=== PATIENT | male | born 1930 | race Caucasian/White ===

== ENCOUNTER 2018-07-20 08:13 | Day surgery (SDC) | payer MEDICARE, OTHER ==
[~2018-07-20 08:13] MED LIST: Lidocaine 1% with EPINEPHrine 1:100,000 50 ML MDV ONE; Sodium Chloride 0.9% 10 ML ONE; Sodium Tetradecyl Sulfate 1% 20 MG/2 ML SDV ONE
[2018-07-20] MEDS ORDERED: fentaNYL 100 MCG/2 ML SDV ONE (08:28)
[2018-07-20] MEDS ORDERED: Midazolam 1 MG/ML 2 ML SDV ONE (08:28)
[2018-07-20] MEDS ORDERED: Propofol 200 MG/20 ML SDV ONE (08:28)
[2018-07-20] MEDS ORDERED: Sodium Chloride 0.9% 1,000 ML IV SCH (09:00)
[2018-07-20] MEDS ORDERED: Lidocaine 1% w/EPINEPHrine 50 ML, Sodium Bicarbonate 5 MEQ in Sodium Chloride 0.9% 950 ML INJECT SCH (09:45)
[2018-07-20] MEDS ORDERED: Dexamethasone 4 MG/ML SDV ONE (09:52)
[2018-07-20] MEDS ORDERED: Ketorolac 60 MG/2 ML SDV ONE (09:52)
[2018-07-20] MEDS ORDERED: Ondansetron 4 MG/2 ML SDV ONE (09:52)
--- NOTE | 2018-07-21 08:23 | OR ---
DATE OF PROCEDURE: 07/20/2018 SURGEON: Zak Hobson MD PROCEDURES: 1. Radiofrequency ablation of right greater saphenous vein. 2. Radiofrequency ablation of left greater saphenous vein. 3. Radiofrequency ablation of left leg deep waste/materials exchange specialist. 4. Radiofrequency ablation of right anterior accessory vein. 5. Sclerotherapy of left leg, multiple. 6. Sclerotherapy of right leg, multiple. 7. Compression wrapping, left leg, 20 mmHg pressure, [id number] configuration. 8. Compression wrapping (94190), right leg, 20 mmHg, [id number] confirmation. COMPLICATIONS: None. TRAVEL WRITER: None. PREOPERATIVE DIAGNOSIS: Venous insufficiency with inflammation and pain, and lipodermatosclerosis. POSTOPERATIVE DIAGNOSIS: Venous insufficiency with inflammation and pain, and lipodermatosclerosis. PROCEDURE IN DETAIL: The patient was placed in supine position. Both legs were prepped and draped. The left leg was addressed first. Radiofrequency ablation was used to address the left leg deep waste/materials exchange specialist and left leg greater saphenous vein by using 21-gauge needles and then exchanged for a 35,000th wire and 7-[place] sheath. The probes would be introduced into the aforementioned veins. Tumescent fluid injected in a 1-cm jacket around this, and the probes would be deployed x2 proximally and distally, and x1 in all other segments, except for the waste/materials exchange specialist, which was only a single segment. Direct even pressure was held during deployment. Sheath and device were removed. Direct pressure was held for 10 minutes. Dermabond was applied. The right leg was then addressed in a similar fashion using 21-gauge needles, then 7-[place] sheath through a 35,000th wire. This would also be accessed using two separate wires. Tumescent fluid injected in a 1-cm jacket around this and direct even pressure was held as the probe was deployed x2 proximally and distally, and x1 in all other segments. Once radiofrequency ablation was completed, sclerotherapy was then performed using 0.33% sodium tetradecyl and always drawn back to ensure intravascular injection only, 3 on the right and 3 on the left. No more than 2 mL was injected in one location. [id number], two-layer, two-stage compression wrapping was then performed in distal to proximal gradient. The patient tolerated the procedure well. Zak Hobson MD /[id number]
== END 2018-07-20 12:00 | disposition home or self-care (01) ==
LOC: JP.SDS 08:13
PROVIDERS: ATTEND Surgery
DX: I83.12 Varicose veins of left lower extremity with inflammation (principal); I83.11 Varicose veins of right lower extremity with inflammation; I10 Essential (primary) hypertension; E78.00 Pure hypercholesterolemia, unspecified; R73.03 Prediabetes; Z87.891 Personal history of nicotine dependence; Z79.82 Long term (current) use of aspirin; Z79.899 Other long term (current) drug therapy
CPT/HCPCS: 36471; 36475; 36476; J1100; J1642; J1885; J2250; J2405; J2704; J3010; J7030; J3490

== ENCOUNTER 2021-07-19 09:15 | Emergency (ER) | payer MEDICARE, BC ==
[2021-07-19] MEDS ORDERED: Lidocaine 1% 5 ML VIAL INJECT ONE (09:46)
[2021-07-19] MEDS ORDERED: Bacitracin Oint 1 GM U/D Packet TOP ONE (10:14)
== END 2021-07-19 10:40 | disposition home or self-care (01) ==
LOC: JP.ED 09:15
DX: S01.111A Laceration without foreign body of right eyelid and periocular area, initial encounter (principal); E78.00 Pure hypercholesterolemia, unspecified; I10 Essential (primary) hypertension; Z79.82 Long term (current) use of aspirin; Z79.899 Other long term (current) drug therapy; W18.39XA Other fall on same level, initial encounter
CPT/HCPCS: 12013; 99281; 99283-25

== ENCOUNTER 2021-08-31 07:29 | Emergency (ER) | payer MEDICARE, BC ==
[2021-08-31 08:29] LABS: ESTIMATED GFR 58 mL/min (>60); TROPONIN I HIGH SENSITIVITY 10.6 pg/mL (<=60.3)
[2021-08-31] MEDS ORDERED: Iopamidol 755 Mg/ML 100 ML Bottle IV ONE (10:54)
[2021-08-31] MEDS ORDERED: Sodium Chloride 0.9% 75 ML IV SCH (11:00)
[2021-08-31] MEDS ORDERED: Sodium Chloride 0.9% 1,000 ML IV SCH (11:00)
== END 2021-08-31 13:21 | disposition home or self-care (01) ==
LOC: JP.ED 07:29
DX: J90 Pleural effusion, not elsewhere classified (principal); E78.00 Pure hypercholesterolemia, unspecified; I10 Essential (primary) hypertension; Z79.899 Other long term (current) drug therapy
CPT/HCPCS: 32555; 36415; 36600; 71045; 71045-26; 71046; 71046-26; 71275; 71275-26; 80053; 82150; 82803; 82945; 83615; 83880; 83986; 84157; 84478; 84484; 85025; 85379; 87015; 87070; 87102; 87116; 87205; 87206; 87220; 89050; 99284; 99285-25; J3490; Q9967

== ENCOUNTER 2022-04-02 03:54 | Inpatient (IN) | payer MEDICARE, BC ==
[2022-04-02] MEDS ORDERED: Nitroglycerin/D5W 25 MG/250 ML BOTTLE IV SCH (04:00)
[2022-04-02] MEDS ORDERED: Sodium Chloride 0.9% 10 ML Syringe FLUSH PRN (04:00)
[2022-04-02] MEDS ORDERED: Furosemide 40 MG/4 ML VIAL IVPUSH ONE ×2 (04:30→13:30)
[2022-04-02 04:38] LABS: TROPONIN I HIGH SENSITIVITY 15.4 pg/mL (<=60.3)
[2022-04-02] MEDS ORDERED: Lidocaine 2% Jelly 10 ML Urojet MUCMEM ONE (05:01)
[2022-04-02 05:17] LABS: CORONAVIRUS COVID-19 NAA NEGATIVE (NEGATIVE)
[2022-04-02] MEDS ORDERED: Ondansetron 4 MG/2 ML SDV IV PRN (07:10)
[2022-04-02] MEDS ORDERED: Acetaminophen 325 MG Tab PO PRN (07:10)
[2022-04-02] MEDS ORDERED: Warfarin 5 MG Tab PO SCH (07:10)
[2022-04-02] MEDS ORDERED: Ondansetron 4 MG Tab.DIS PO PRN (07:10)
[2022-04-02] MEDS ORDERED: Melatonin 3 MG Tab PO PRN (07:10)
[2022-04-02] MEDS: Diltiazem 120 MG Cap.CD PO SCH (08:26)
[2022-04-02] MEDS: Fish Oil/Omega-3 Fatty Acids 1 Gm Cap PO SCH (08:27)
[2022-04-02] MEDS: Pantoprazole 40 MG Tab.CR PO SCH (08:28)
[2022-04-02] MEDS: Propranolol 40 MG Tab PO SCH ×2 (08:28→20:20)
[2022-04-02] MEDS: Multivitamins with Iron/Calcium/Folic Acid/Minerals Tab PO SCH (08:29)
[2022-04-02] MEDS: Lisinopril 10 MG Tab PO SCH (08:31)
[2022-04-02] MEDS: Donepezil 10 MG Tab PO SCH (08:31)
[2022-04-02] MEDS: Aspirin 81 MG Tab.Chew PO SCH (08:32)
[2022-04-02] MEDS ORDERED: Non-Formulary Medication 1 Each (Multivitamin [Multivitamins] 1 EACH Capsule) PO SCH (09:00)
[2022-04-02] MEDS ORDERED: DONEPEZIL 5 MG PO SCH (09:00)
[2022-04-02] MEDS: Warfarin 5 MG Tab PO SCH (13:38)
[2022-04-03] MEDS: Donepezil 10 MG Tab PO SCH (08:43)
[2022-04-03] MEDS: Pantoprazole 40 MG Tab.CR PO SCH (08:43)
[2022-04-03] MEDS: Fish Oil/Omega-3 Fatty Acids 1 Gm Cap PO SCH (08:44)
[2022-04-03] MEDS: Diltiazem 120 MG Cap.CD PO SCH (08:44)
[2022-04-03] MEDS: Propranolol 40 MG Tab PO SCH ×2 (08:44→21:13)
[2022-04-03] MEDS: Aspirin 81 MG Tab.Chew PO SCH (08:44)
[2022-04-03] MEDS: Multivitamins with Iron/Calcium/Folic Acid/Minerals Tab PO SCH (08:45)
[2022-04-03] MEDS: Lisinopril 10 MG Tab PO SCH (08:45)
[2022-04-03] MEDS ORDERED: Furosemide 40 MG/4 ML VIAL IVPUSH ONE (11:25)
[2022-04-03] MEDS ORDERED: Digoxin 125 MCG Tab PO SCH (13:00)
[2022-04-03] MEDS: Warfarin 5 MG Tab PO SCH (14:11)
[2022-04-04] MEDS: Aspirin 81 MG Tab.Chew PO SCH (09:04)
[2022-04-04] MEDS: Pantoprazole 40 MG Tab.CR PO SCH (09:04)
[2022-04-04] MEDS: Donepezil 10 MG Tab PO SCH (09:04)
[2022-04-04] MEDS: Propranolol 40 MG Tab PO SCH ×2 (09:05→20:25)
[2022-04-04] MEDS: Lisinopril 10 MG Tab PO SCH (09:05)
[2022-04-04] MEDS: Fish Oil/Omega-3 Fatty Acids 1 Gm Cap PO SCH (09:05)
[2022-04-04] MEDS: Diltiazem 120 MG Cap.CD PO SCH (09:05)
[2022-04-04] MEDS: Multivitamins with Iron/Calcium/Folic Acid/Minerals Tab PO SCH (09:06)
[2022-04-04] MEDS ORDERED: Furosemide 40 MG Tab PO SCH (09:45)
[2022-04-04] MEDS: Furosemide 40 MG Tab PO SCH (12:59)
[2022-04-04] MEDS: Warfarin 5 MG Tab PO SCH (13:01)
[2022-04-05] MEDS: Donepezil 10 MG Tab PO SCH (08:12)
[2022-04-05] MEDS: Pantoprazole 40 MG Tab.CR PO SCH (08:12)
[2022-04-05] MEDS: Aspirin 81 MG Tab.Chew PO SCH (08:14)
[2022-04-05] MEDS: Propranolol 40 MG Tab PO SCH (08:15)
[2022-04-05] MEDS: Fish Oil/Omega-3 Fatty Acids 1 Gm Cap PO SCH (08:15)
[2022-04-05] MEDS: Diltiazem 120 MG Cap.CD PO SCH (08:15)
[2022-04-05] MEDS: Furosemide 40 MG Tab PO SCH (08:16)
[2022-04-05] MEDS: Multivitamins with Iron/Calcium/Folic Acid/Minerals Tab PO SCH (08:16)
[2022-04-05] MEDS: Lisinopril 10 MG Tab PO SCH (08:16)
[2022-04-05] MEDS: Warfarin 5 MG Tab PO SCH (13:10)
== END 2022-04-05 13:50 | disposition home or self-care (01) | DRG 291 ==
LOC: JP.ED 03:54 → JP.ICU 05:58
PROVIDERS: ADMIT Internal Medicine; ATTEND Internal Medicine
DX: I13.0 Hypertensive heart and chronic kidney disease with heart failure and stage 1 through stage 4 chronic kidney disease, or unspecified chronic kidney disease (principal); I50.33 Acute on chronic diastolic (congestive) heart failure; J96.01 Acute respiratory failure with hypoxia; J90 Pleural effusion, not elsewhere classified; N18.31 Chronic kidney disease, stage 3a; I48.91 Unspecified atrial fibrillation; N18.32 Chronic kidney disease, stage 3b; G30.1 Alzheimer's disease with late onset; Z66 Do not resuscitate; E78.5 Hyperlipidemia, unspecified; Z20.822 Contact with and (suspected) exposure to COVID-19; F02.80 Dementia in other diseases classified elsewhere, unspecified severity, without behavioral disturbance, psychotic disturbance, mood disturbance, and anxiety; Z79.899 Other long term (current) drug therapy; Z87.891 Personal history of nicotine dependence; E78.00 Pure hypercholesterolemia, unspecified; H54.7 Unspecified visual loss; Z86.79 Personal history of other diseases of the circulatory system; Z79.01 Long term (current) use of anticoagulants; Z79.82 Long term (current) use of aspirin; Z90.49 Acquired absence of other specified parts of digestive tract; Z98.49 Cataract extraction status, unspecified eye
CPT/HCPCS: 0241U; 36415; 36600; 51702; 71045; 80048; 82803; 83735; 83880; 84145; 84484; 85025; 85027; 85610; 93005; 93010; 93306; 94660; 96365; 96375; 99223; 99233; 99238; 99285; A9270-GY; J1940; J3490